=== PATIENT | male | born 1955 ===

== ENCOUNTER 2016-12-09 05:13 | Emergency (ER) | payer OTHER ==
[2016-12-09 05:13] VITALS: BMI 32.2
[2016-12-09 05:36] VITALS: RESP 18; TEMP 98.6
[2016-12-09] MEDS ORDERED: Sodium Chloride 0.9% 1,000 ML IV STA (05:52)
--- NOTE | 2016-12-09 06:07 | ED PDOC ---
HPI: Male Pain Time Seen by Provider: 12/09/16 05:20 Chief Complaint (Nursing): Male Genitourinary Chief Complaint (Provider): hematuria History Per: Patient History/Exam Limitations: no limitations Onset/Duration Of Symptoms: Hrs Current Symptoms Are (Timing): Still Present Additional Complaint(s): 61yo male with PMHx including CAD w/ stent on plavix presents to the ED with c/ o hematuria x 3 episodes tonight with associated left sided abd pain and flank pain worse since tonight. Denies n/v, other bleeding, or any other medical complaints. Past Medical History Reviewed: Historical Data, Nursing Documentation, Vital Signs Vital Signs: Last Vital Signs Temp 98.6 F 12/09/16 05:30 Pulse 74 12/09/16 05:30 Resp 18 12/09/16 05:30 BP 165/93 H 12/09/16 05:30 Pulse Ox 98 12/09/16 05:30 - Medical History PMH: Asthma, CAD, Colonic Polyps, COPD, Emphysema, Gastritis, HTN Denies: Chronic Kidney Disease - Surgical History Surgical History: Back Surgery (cervical fusion - 2 years ago), Coronary Stent ( x1) - Family History Family History: States: No Known Family Hx - Home Medications Home Medications: Ambulatory Orders Medication Instructions Recorded Clopidogrel [Plavix] 75 mg PO DAILY 04/27/16 Albuterol HFA [Ventolin HFA 90 200 puff IH PRN PRN 08/13/16 mcg/actuation (8 g)] Acetaminophen 2 tab PO Q4 PRN #24 capsule 11/28/16 oxyCODONE/Acetaminophen [Percocet 1 ea PO Q6 PRN #5 tab 11/28/16 5/325 mg Tab] Nitrofurantoin Macrocrystals 100 mg PO BID #14 cap 12/09/16 [Macrobid] - Allergies Allergies/Adverse Reactions: Allergies Allergy/AdvReac Type Severity Reaction Status Date / Time No Known Allergies Allergy Verified 02/27/16 07:40 Review of Systems ROS Statement: Except As Marked, All Systems Reviewed And Found Negative Gastrointestinal: Positive for: Abdominal Pain. Negative for: Nausea, Vomiting Genitourinary Male: Positive for: Hematuria Musculoskeletal: Positive for: Back Pain (flank pain ) Physical Exam - Reviewed Nursing Documentation Reviewed: Yes Vital Signs Reviewed: Yes - Physical Exam Appears: Positive for: Well, No Acute Distress Head Exam: Positive for: ATRAUMATIC, NORMAL INSPECTION, NORMOCEPHALIC Skin: Positive for: Normal Color, Warm, Dry Eye Exam: Positive for: Normal appearance, EOMI, PERRL ENT: Positive for: Normal ENT Inspection Neck: Positive for: Normal, Painless ROM, Supple Cardiovascular/Chest: Positive for: Regular Rate, Rhythm. Negative for: Murmur , Tachycardia Respiratory: Positive for: Normal Breath Sounds. Negative for: Wheezing, Respiratory Distress Gastrointestinal/Abdominal: Positive for: Normal Exam, Bowel Sounds, Soft. Negative for: Tenderness Back: Positive for: Normal Inspection. Negative for: L CVA Tenderness, R CVA Tenderness Extremity: Positive for: Normal ROM. Negative for: Deformity, Swelling Neurologic/Psych: Positive for: Alert, Oriented. Negative for: Motor/Sensory Deficits - Laboratory Results Result Diagrams: 12/09/16 06:05 12/09/16 06:05 - ECG O2 Sat by Pulse Oximetry: 98 Pulse Ox Interpretation: Normal (RA) Medical Decision Making Medical Decision Makin: Impression: kidney stone Plan: CT A/P Labs IVF, Toradol 15mg IVP reassess Urine noted to be dark red. Pt s/o to Dr. Mendiola at [address] A/P, labs, re-eval. Scribe Attestation: Documented by Edmar Garnica acting as a scribe for Paulo Moser MD. Provider Scribe Attestation: All medical record entries made by the Scribe were at my direction and personally dictated by me. I have reviewed the chart and agree that the record accurately reflects my personal performance of the history, physical exam, medical decision making, and the department course for this patient. I have also personally directed, reviewed, and agree with the discharge instructions and disposition. Disposition - Clinical Impression Clinical Impression: Hematuria, Voiding dysfunction, Diverticulosis, Cystitis - Patient ED Disposition Is Patient to be Admitted: Transfer of Care - Disposition Referrals: Allen Mcleod MD [Staff Provider] - Dm Marr Jr., MD [Staff Provider] - Luis Enrique Bush MD [Primary Care Provider] - Disposition: Transfer of Care Disposition Time: 07:00 Condition: GOOD Additional Instructions: Follow up with your PCP in 2-3 days. FOllow up with urologist within 1 week. Prescriptions: Nitrofurantoin Macrocrystals [Macrobid] 100 mg PO BID #14 cap Instructions: Urinary Tract Infection in Men (ED), Acute Hematuria (ED) Patient Signed Over To: Oracio Mendiola Handoff Comments: pending CT A/P, labs, re-eval
[2016-12-09 06:24] LABS: EOS # 0.6 K/uL (0.0-0.7); EOS % 10.4 % (0.0-4.0); HEMATOCRIT 45.8 % (35.0-51.0); LYMPH # 1.1 K/uL (1.0-4.3); LYMPH % 19.2 % (20.0-40.0); MEAN CELL VOLUME 93.6 fl (80.0-94.0); MEAN CORPUSCULAR HEMOGLOBIN 31.2 pg (27.0-31.0); MEAN CORPUSCULAR HGB CONC 33.3 g/dL (33.0-37.0); MEAN PLATELET VOLUME 8.2 fl (7.2-11.7); MONO # 0.6 K/uL (0.0-0.8); MONO % 11.1 % (0.0-10.0); NEUT # 3.3 K/uL (1.8-7.0); NEUT % 59.3 % (50.0-75.0); NRBC % 0.1 % (0.0-0.0); RED CELL DISTRIBUTION WIDTH 13.5 % (11.5-14.5); WHITE BLOOD COUNT 5.6 K/uL (4.8-10.8)
[2016-12-09 06:50] LABS: RBC URINE 52 /hpf (0-3); URINE BACTERIA RARE (<OCC); URINE BILIRUBIN NEGATIVE (NEGATIVE); URINE BLOOD MODERATE (NEGATIVE); URINE COLOR RED (YELLOW); URINE GLUCOSE (UA) NEG (Normal); URINE KETONE NEGATIVE (NEGATIVE); URINE PROTEIN 100 mg/dL (NEGATIVE); URINE UROBILINOGEN 0.2-1.0 mg/dL (0.2-1.0); WBC URINE 8 /hpf (0-5)
[2016-12-09 06:51] LABS: URINE LEUKOCYTE ESTERASE SMALL Leu/uL (Negative)
--- NOTE | 2016-12-09 06:56 | CT ---
EXAM: CT Abdomen and Pelvis Without Intravenous Contrast. CLINICAL HISTORY: 61 years old, male; Pain; Abdominal pain; Flank; Left; Additional info: Hematuria and l abd pain TECHNIQUE: Axial computed tomography images of the abdomen and pelvis without intravenous contrast. This CT exam was performed using one or more of the following dose reduction techniques: automated exposure control, adjustment of the mA and/or kV according to patient size, and/or use of iterative reconstruction technique. Coronal and sagittal reformatted images were created and reviewed. EXAM DATE/TIME: 12/09/2016 5:51 AM COMPARISON: CT - ABD PELVIS PO CONTRAST ONLY 08/13/2016 12:18:32 PM FINDINGS: The liver, spleen, gallbladder and pancreas appear grossly normal on this non-contrast study. No perinephric stranding. No hydronephrosis. No obstructing calculi. The wall of the urinary bladder appears slightly thickened and indistinct possibly representing cystitis. Scattered colonic diverticuli are noted in the descending colon. No evidence of diverticulitis. Proximal appendix identified on series 3 images 95 - 102. There are adjacent clips. This may represent an appendiceal stump. There is an umbilical fat hernia. Borderline prominent prostate. Recommend correlation with PSA level. Clips in the inguinal regions bilaterally. IMPRESSION: Left-sided colonic diverticulosis without evidence of diverticulitis. Possible mild cystitis as discussed above.Recommend correlation with urinalysis.
[2016-12-09 07:00] LABS: ALB/GLOB RATIO 1.2 (1.0-2.1); ALKALINE PHOSPHATASE 58 U/L (38-126); ALT/SGPT 66 U/L (21-72); AST/SGOT 53 U/L (17-59); BILIRUBIN,TOTAL 0.6 mg/dl (0.2-1.3); BLOOD UREA NITROGEN 18 mg/dl (9-20); CALCIUM 8.9 mg/dL (8.4-10.2); CARBON DIOXIDE 27 mmol/L (22-30); CHLORIDE 104 mmol/L (98-107); GFR AFRICAN-AMERICAN > 60; GLUCOSE,RANDOM 102 mg/dL (75-110); LIPASE 465 U/L (23-300); POTASSIUM 4.2 MMOL/L (3.6-5.0); SODIUM 137 mmol/l (132-148); TOTAL PROTEIN 7.3 G/DL (6.3-8.2)
--- NOTE | 2016-12-09 07:10 | ED PDOC ---
- Laboratory Results Result Diagrams: 12/09/16 06:05 12/09/16 06:05 - ECG O2 Sat by Pulse Oximetry: 98 - Progress Re-evaluation Time: 08:48 Condition: Re-examined, Improved Medical Decision Making Medical Decision Making: Time: 0700 Patient signed out by Dr. Moser pending U/S, labs and re-evaluation Time: 0840 U/S report reviewed PROCEDURE: Ultrasound urinary bladder HISTORY: ex-smoker, hematuria, r/o bladder CA COMPARISON: None available TECHNIQUE: Transabdominal FINDINGS: The distended urinary bladder measures 414.36 mL. The wall is smooth and thin. There is no intraluminal mass. Postvoid, the residual volume is 179.89 mL. This is a large postvoid residual. Bilateral ureteral jets are demonstrated. The prostate measures 63.6 mL in volume. IMPRESSION: Large postvoid residual within the urinary bladder. No intraluminal mass or mural thickening appreciated. Bilateral ureteral jets. Enlarged prostate. Scribe Attestation: Documented by Gisele La acting as a scribe for Oracio Mendiola MD MD Scribe Attestation: All medical record entries made by the Scribe were at my direction and personally dictated by me. I have reviewed the chart and agree that the record accurately reflects my personal performance of the history, physical exam, medical decision making, and the department course for this patient. I have also personally directed, reviewed, and agree with the discharge instructions and disposition. Disposition Doctor Will See Patient In The: Office Counseled Patient/Family Regarding: Studies Performed, Diagnosis, Need For Followup - Clinical Impression Clinical Impression: Hematuria, Dysfunctional voiding of urine, Diverticulosis of intestine, Cystitis - POA Present On Arrival: None - Disposition Referrals: Luis Enrique Bush MD [Primary Care Provider] - Dm Marr Jr., MD [Staff Provider] - Allen Mcleod MD [Staff Provider] - Disposition: Routine/Home Disposition Time: 08:49 Condition: GOOD Additional Instructions: Follow up with your PCP in 2-3 days. FOllow up with urologist within 1 week. Prescriptions: Nitrofurantoin Macrocrystals [Macrobid] 100 mg PO BID #14 cap Instructions: Urinary Tract Infection in Men (ED), Acute Hematuria (ED)
[2016-12-09 08:03] LABS: PARTIAL THROMBOPLASTIN TIME 25.4 SECONDS (23.3-32.5)
--- NOTE | 2016-12-09 08:39 | US ---
PROCEDURE: Ultrasound urinary bladder HISTORY: ex-smoker, hematuria, r/o bladder CA COMPARISON: None available TECHNIQUE: Transabdominal FINDINGS: The distended urinary bladder measures 414.36 mL. The wall is smooth and thin. There is no intraluminal mass. Postvoid, the residual volume is 179.89 mL. This is a large postvoid residual. Bilateral ureteral jets are demonstrated. The prostate measures 63.6 mL in volume. IMPRESSION: Large postvoid residual within the urinary bladder. No intraluminal mass or mural thickening appreciated. Bilateral ureteral jets. Enlarged prostate.
[2016-12-09 09:14] VITALS: BP 156/99; PULSE 62
[2016-12-11 19:02] VITALS: O2SAT 98
== END 2016-12-09 09:00 | disposition home or self-care (01) ==
LOC: H.ER 05:13
DX: N30.91 Cystitis, unspecified with hematuria (principal); K57.30 Diverticulosis of large intestine without perforation or abscess without bleeding; R31.9 Hematuria, unspecified; I10 Essential (primary) hypertension; I25.10 Atherosclerotic heart disease of native coronary artery without angina pectoris; Z95.5 Presence of coronary angioplasty implant and graft

== ENCOUNTER 2017-07-06 11:31 | Emergency (ER) | payer BC, OTHER ==
[2017-07-06 11:31] VITALS: BMI 32.2
[2017-07-06 12:02] VITALS: BP 118/63; PULSE 63; RESP 18; TEMP 97; O2SAT 96
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
--- NOTE | 2017-07-07 14:31 | RAD ---
PROCEDURE: Left Knee Radiographs. HISTORY: Pain. No history of recent/ related trauma provided COMPARISON: 11/28/2016 FINDINGS: BONES: No acute fracture. Proliferative hypertrophic changes emanating from the femoral condyle and tibial plateau JOINTS: Normal. No osteoarthritis. JOINT EFFUSION: Small suprapatellar joint effusion. OTHER FINDINGS: None. IMPRESSION: Small joint effusion. Otherwise no interval change. Please note: No preliminary report/ innterpretation of this examination provided by emergency department personnel.
== END 2017-07-06 13:36 | disposition home or self-care (01) ==
LOC: H.ER 11:31
DX: S83.92XA Sprain of unspecified site of left knee, initial encounter (principal); X50.9XXA Other and unspecified overexertion or strenuous movements or postures, initial encounter; Y92.89 Other specified places as the place of occurrence of the external cause
CPT/HCPCS: 73562; 96372; 99284; J1885

== ENCOUNTER 2018-06-19 15:53 | Emergency (ER) | payer OTHER ==
[2018-06-19 15:53] VITALS: BMI 32.2
[2018-06-19 16:02] VITALS: BP 126/73; PULSE 57; RESP 18; TEMP 97.9; O2SAT 98
--- NOTE | 2018-06-19 16:37 | ED PDOC ---
HPI: Trauma/Fall - HPI Chief Complaint (Provider): Trauma History Per: Patient Onset/Duration Of Symptoms: Hrs (STUDY DIRECTOR) Additional Complaint(s): 63 year old male presents to the ED via EMS after he slipped and fell. Patient reports he was in his apartment building when he noticed the floor was wet. He went down the stairs and slipped and landed on his back. Patient is unsure whether he hit his head but denies LOC, numbness, or tingling. He is complaining of headache, neck pain, and back pain. Patient is concerned because he had surgery done to the cervical spine in the past. PMD: Luis Enrique Traore <Kayleen Mccord - Last Filed: 06/19/18 18:09> <Sruthi Andrew - Last Filed: 06/24/18 13:49> - HPI Time Seen by Provider: 06/19/18 16:04 Chief Complaint (Nursing): Trauma Past Medical History Reviewed: Historical Data, Nursing Documentation, Vital Signs Vital Signs: Last Vital Signs Temp 97.9 F 06/19/18 15:59 Pulse 57 L 06/19/18 15:59 Resp 18 06/19/18 15:59 BP 126/73 06/19/18 15:59 Pulse Ox 98 06/19/18 15:59 - Medical History PMH: Asthma, CAD, Colonic Polyps, COPD, Emphysema, Gastritis, HTN Denies: Chronic Kidney Disease - Surgical History Surgical History: Back Surgery (cervical fusion - 2 years ago), Coronary Stent (x1) - Family History Family History: States: Unknown Family Hx <Kayleen Mccord - Last Filed: 06/19/18 18:09> Vital Signs: Last Vital Signs Temp 97.9 F 06/19/18 15:59 Pulse 57 L 06/19/18 15:59 Resp 18 06/19/18 15:59 BP 126/73 06/19/18 15:59 Pulse Ox 98 06/19/18 18:12 <Sruthi Andrew - Last Filed: 06/24/18 13:49> - Home Medications Home Medications: Ambulatory Orders Medication Instructions Recorded RX: Clopidogrel [Plavix] 75 mg PO DAILY 04/27/16 RX: Albuterol HFA [Ventolin HFA 90 200 puff IH PRN PRN 08/13/16 mcg/actuation (8 g)] RX: Acetaminophen 2 tab PO Q4 PRN #24 capsule 11/28/16 oxyCODONE/Acetaminophen [Percocet 1 ea PO Q6 PRN #5 tab 11/28/16 5/325 mg Tab] Nitrofurantoin Macrocrystals 100 mg PO BID #14 cap 12/09/16 [Macrobid] oxyCODONE/Acetaminophen [Percocet 1 ea PO Q6 PRN #4 tab 07/06/17 5/325 mg Tab] oxyCODONE/Acetaminophen [Percocet 1 ea PO Q6H PRN #10 tab 06/19/18 5/325 mg Tab] - Allergies Allergies/Adverse Reactions: Allergies Allergy/AdvReac Type Severity Reaction Status Date / Time No Known Allergies Allergy Verified 06/19/18 15:59 Review of Systems ROS Statement: Except As Marked, All Systems Reviewed And Found Negative Musculoskeletal: Positive for: Neck Pain, Back Pain Neurological: Positive for: Headache. Negative for: Numbness (or tingling), Other (LOC) <Kayleen Mccord - Last Filed: 06/19/18 18:09> Physical Exam - Reviewed Nursing Documentation Reviewed: Yes Vital Signs Reviewed: Yes - Physical Exam Appears: Positive for: Non-toxic, No Acute Distress Head Exam: Positive for: ATRAUMATIC, NORMAL INSPECTION, NORMOCEPHALIC Skin: Positive for: Normal Color, Warm, Dry Eye Exam: Positive for: Normal appearance, EOMI, PERRL Neck: Positive for: Normal, Painless ROM Cardiovascular/Chest: Positive for: Regular Rate, Rhythm. Negative for: Murmur Respiratory: Positive for: Normal Breath Sounds. Negative for: Wheezing, Respiratory Distress Back: Positive for: Other (Tenderness to the entire spine) Neurologic/Psych: Positive for: Alert, Oriented. Negative for: Motor/Sensory Deficits <Kayleen Mccord - Last Filed: 06/19/18 18:09> - ECG O2 Sat by Pulse Oximetry: 98 (RA) Pulse Ox Interpretation: Normal <Kayleen Mccord - Last Filed: 06/19/18 18:09> Medical Decision Making Medical Decision Making: Initial Impression: Neck pain, back pain, and headache Initial Plan: --CT cervical spine --CT head --CT lumbar spine --CT thoracic spine --Morphine 2mg IM 17:14 CT Head IMPRESSION: No acute intracranial hemorrhage. Minor chronic periventricular white matter ischemic changes. Mild generalized volume loss with more localized cortical atrophic changes both parietal and to a lesser degree frontal lobes bilaterally at the vertex. Mild mucoperiosteal inflammatory changes within all the paranasal sinuses as described 17:30 CT cervical spine IMPRESSION: 1. Stable cervical fusion from C5-C7 including anterior compression plate and screws throughout same distribution anteriorly as well as intervertebral fusion hardware at C5-6 and C6-7. No fracture, spondylolisthesis or disruption of the fusion hardware as imaged. 2. Advanced multilevel neural foraminal stenoses as discussed above, minimally increased at the C3-4 level and otherwise stable. No severe central canal stenosis. Limited central canal stenosis is noted on degenerative basis at C3- 4. 17:33 CT lumbar spine IMPRESSION: No acute fractures. Mild multilevel degenerative spondylosis as detailed above. 17:34 CT thoracic spine IMPRESSION: No acute fracture or spondylolisthesis. Schmorl's node is debris associated with limited upper endplate depression at T12. 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 Scribe Attestation: Documented by Zurdo Mcintosh acting as a scribe for Kayleen PATRICIA. Provider Scribe Attestation: All medical record entries made by the Scribe were at my direction and personally dictated by me. I have reviewed the chart and agree that the record accurately reflects my personal performance of the history, physical exam, medical decision making, and the department course for this patient. I have also personally directed, reviewed, and agree with the discharge instructions and disposition. <Kayleen Mccord - Last Filed: 06/19/18 18:09> Disposition - Patient ED Disposition Is Patient to be Admitted: No Counseled Patient/Family Regarding: Diagnosis, Need For Followup, Rx Given - Disposition Disposition: Routine/Home Disposition Time: 18:11 <Kayleen Mccord - Last Filed: 06/19/18 18:09> <Sruthi Andrew - Last Filed: 06/24/18 13:49> - Clinical Impression Clinical Impression: Head injury, Fall, Back injury - Disposition Condition: GOOD Prescriptions: oxyCODONE/Acetaminophen [Percocet 5/325 mg Tab] 1 ea PO Q6H PRN #10 tab PRN Reason: Pain, Severe (8-10) Instructions: Concussion in Adults Forms: [employer] (Y[place]i) Addendum Addendum: 06/24/18 13:49 reviewed chart and agree with PA assessment and plan. <Sruthi Andrew - Last Filed: 06/24/18 13:49>
--- NOTE | 2018-06-19 17:15 | CT ---
Date of service: 06/19/2018 PROCEDURE: CT HEAD WITHOUT CONTRAST. HISTORY: Headache following after fall on steps COMPARISON: None available. TECHNIQUE: Axial computed tomography images were obtained through the head/brain without intravenous contrast. Radiation dose: Total exam DLP = 1661.81 mGy-cm. This CT exam was performed using one or more of the following dose reduction techniques: Automated exposure control, adjustment of the mA and/or kV according to patient size, and/or use of iterative reconstruction technique. FINDINGS: HEMORRHAGE: No intracranial hemorrhage. BRAIN: Right periventricular white matter ischemic changes seen extending peripherally into the deep white matter both cerebral hemispheres. No obvious parenchymal nor extra-axial mass or collection. Moderate generalized volume loss with more localized biparietal and to a lesser degree bifrontal cortical atrophic changes at the vertex. VENTRICLES: No obstructive hydrocephalus. CALVARIUM: There are no acute calvarial fractures. PARANASAL SINUSES: Minimal mucosal thickening seen within the maxillary antra left greater than right. There is also minor mucosal thickening seen within multiple ethmoid air cells extending superiorly into the inferior margin of the frontal sinus. The minimal mucosal thickening also noted within the sphenoid sinus MASTOID AIR CELLS: Unremarkable as visualized. No inflammatory changes. OTHER FINDINGS: None. IMPRESSION: No acute intracranial hemorrhage. Minor chronic periventricular white matter ischemic changes. Mild generalized volume loss with more localized cortical atrophic changes both parietal and to a lesser degree frontal lobes bilaterally at the vertex. Mild mucoperiosteal inflammatory changes within all the paranasal sinuses as described
--- NOTE | 2018-06-19 17:32 | CT ---
Date of service: 06/19/2018 PROCEDURE: CT Cervical Spine without contrast HISTORY: neck pain, fell on steps COMPARISON: Noncontrast cervical spine CT 11/28/2016. TECHNIQUE: Axial computed tomography images were obtained of the cervical spine without the use of intravenous contrast. Coronal and sagittal reformatted images were created and reviewed. Radiation dose: Total exam DLP = 342.23 mGy-cm. This CT exam was performed using one or more of the following dose reduction techniques: Automated exposure control, adjustment of the mA and/or kV according to patient size, and/or use of iterative reconstruction technique. FINDINGS: VERTEBRAE: No fracture. Normal alignment. No destructive bony lesion. DISCS/SPINAL CANAL/NEURAL FORAMINA: Stable anterior spinal fusion including compression plate and multiple screws at C5, C6 and C7 and intervertebral fusion hardware at C5-6 and C6-7 once again. No interval spondylolisthesis. No disruption of fusion hardware appreciable. Stable prominent spondylosis at C3-4 and anteriorly at C7-T1. No significant central canal or neural foraminal stenosis. Significant disc height loss is reiterated C3-4 and moderately at C4-5 once again. At C3-4, a circumferential disc osteophyte complex is appreciated combining with prominent uncovertebral arthrosis resulting in borderline central canal stenosis and moderate to severe bilateral neural foraminal stenosis, slightly increased in the interval. At C4-5, moderate to severe left degenerative foraminal stenosis appreciated, borderline at the right due to left greater than right facet arthrosis and uncovertebral arthrosis. No significant central canal though minimal disc osteophyte complex is identified. At C5-6, significant central canal stenosis appreciated though osteophytes do encroach ventral nerve roots. Moderate severe bilateral degenerative neural foraminal stenoses are not significantly changed in the interval. Fusion hardware obscures the evaluation somewhat. At C6-7, mild bilateral neural foraminal stenoses are again appreciated which are degenerative with artifacts obscuring this level somewhat. No canal appears widely patent. C7-T1 is widely patent throughout all foramina. PARASPINAL SOFT TISSUES: Unremarkable. OTHER FINDINGS: None. IMPRESSION: 1. Stable cervical fusion from C5-C7 including anterior compression plate and screws throughout same distribution anteriorly as well as intervertebral fusion hardware at C5-6 and C6-7. No fracture, spondylolisthesis or disruption of the fusion hardware as imaged. 2. Advanced multilevel neural foraminal stenoses as discussed above, minimally increased at the C3-4 level and otherwise stable. No severe central canal stenosis. Limited central canal stenosis is noted on degenerative basis at C3-4.
--- NOTE | 2018-06-19 17:35 | CT ---
Date of service: 06/19/2018 PROCEDURE: CT Lumbar Spine without contrast HISTORY: Low back pain the, fell on stairs COMPARISON: None available. TECHNIQUE: Axial computed tomography images were obtained of the lumbar spine without the use of intravenous contrast. Coronal and sagittal reformatted images were created and reviewed. Radiation dose: Total exam DLP = 1102.85 mGy-cm. This CT exam was performed using one or more of the following dose reduction techniques: Automated exposure control, adjustment of the mA and/or kV according to patient size, and/or use of iterative reconstruction technique. FINDINGS: VERTEBRAE: No acute compression fractures no retropulsed fragments. Minimal chronic anterior stature loss of the L1 segment present felt to be degenerative in origin. Remaining vertebral bodies otherwise exhibit normal stature. Vertebral bodies and facets normally aligned.. DISCS/SPINAL CANAL/NEURAL FORAMINA: Minor multilevel degenerative spondylosis. L1-2: Mild disc space narrowing more so along the posterior disc margin. No disc herniation however there is minor broad-based though somewhat asymmetric disc ridge complex slightly larger on the left than the right with minor compressive effects on the ventral surface of the thecal sac. The overall central bony canal at this level is quite capacious. Exit foramina adequate as well... Facets are slightly over grown. L2-3: There is also mild posterior disc space narrowing. Somewhat asymmetric disc bulging changes are present which results in compressive effects on the anterolateral borders of the thecal sac bilaterally and some extension into the proximal inferior margins of both exit foramina. The overall central canal appears quite capacious however despite disc. Exit foramina are also adequate L3-4: Minor posterior disc space narrowing. There is also minimal asymmetric disc bulging which results in mild compressive effects along the anterolateral borders of the thecal sac bilaterally. The overall central canal is quite capacious. Exit foramina adequate. L4-5: Minor posterior disc space narrowing. Small broad-based disc bulge extends into the proximal inferior margins of both exit foramina. The facets are hypertrophic at this level. Changes result in mild bilateral lateral recess narrowing. Central canal measured at midline is adequate. Exit foramina also adequate. L5-S1: Mild posterior disc space narrowing. Small central and bilateral disc bulge flattens the ventral surfaces of the descending S1 nerve roots. The overall central canal measured at midline is adequate. Right facet joint is quite hypertrophic. Left facet joint is mildly hypertrophic. There is mild left-sided foraminal narrowing. Right exit foramen is adequate. PARASPINAL SOFT TISSUES: Unremarkable. OTHER FINDINGS: None. IMPRESSION: No acute fractures. Mild multilevel degenerative spondylosis as detailed above.
--- NOTE | 2018-06-19 17:36 | CT ---
Date of service: 06/19/2018 PROCEDURE: CT Thoracic Spine without contrast HISTORY: back pain, fell on steps COMPARISON: None available. TECHNIQUE: Axial computed tomography images were obtained of the thoracic spine without intravenous contrast. Coronal and sagittal reformatted images were created and reviewed. Radiation dose: Total exam DLP = 773.75 mGy-cm. This CT exam was performed using one or more of the following dose reduction techniques: Automated exposure control, adjustment of the mA and/or kV according to patient size, and/or use of iterative reconstruction technique. FINDINGS: VERTEBRAE: No vertebral body fracture. Schmorl's node is associated with limited endplate depression at T12. Korey block vertebra is suggested at T3 and T4, congenitally fused. Normal alignment. No destructive bony lesion appreciable. Posterior elements appear diffusely intact without severe bony central canal or neural foraminal stenosis identified throughout. DISCS/SPINAL CANAL/NEURAL FORAMINA: Within the limits of the CT technique, no disc herniation seen. No central canal or neural foraminal stenosis.. PARASPINAL SOFT TISSUES: Unremarkable. OTHER FINDINGS: Inferior cervical spinal fusion incidentally noted. IMPRESSION: No acute fracture or spondylolisthesis. Schmorl's node is debris associated with limited upper endplate depression at T12. 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
== END 2018-06-19 18:18 | disposition home or self-care (01) ==
LOC: H.ER 15:53
DX: S09.90XA Unspecified injury of head, initial encounter (principal); S39.92XA Unspecified injury of lower back, initial encounter; W10.9XXA Fall (on) (from) unspecified stairs and steps, initial encounter; Y92.89 Other specified places as the place of occurrence of the external cause; I10 Essential (primary) hypertension; I25.10 Atherosclerotic heart disease of native coronary artery without angina pectoris; Z95.5 Presence of coronary angioplasty implant and graft
CPT/HCPCS: 70450; 72125; 72128; 72131; 96372; 99284; J2270

== ENCOUNTER 2018-08-23 13:55 | Emergency (ER) | payer OTHER ==
[2018-08-23 13:55] VITALS: BMI 32.2
[2018-08-23 14:09] VITALS: BP 144/83; RESP 16; TEMP 98.2; O2SAT 97
[2018-08-23 15:27] LABS: BASO % 0.2 % (0.0-2.0); EOS # 0.4 K/uL (0.0-0.7); EOS % 5.4 % (0.0-4.0); LYMPH # 2.1 K/uL (1.0-4.3); LYMPH % 29.3 % (20.0-40.0); MEAN CELL VOLUME 93.9 fl (80.0-94.0); MEAN CORPUSCULAR HEMOGLOBIN 32.1 pg (27.0-31.0); MEAN CORPUSCULAR HGB CONC 34.2 g/dL (33.0-37.0); MEAN PLATELET VOLUME 8.5 fl (7.2-11.7); MONO # 0.8 K/uL (0.0-0.8); MONO % 10.4 % (0.0-10.0); NEUT % 54.7 % (50.0-75.0); RBC 4.35 Mil/uL (4.40-5.90); RED CELL DISTRIBUTION WIDTH 13.2 % (11.5-14.5); WHITE BLOOD COUNT 7.3 K/uL (4.8-10.8)
--- NOTE | 2018-08-23 15:38 | ED PDOC ---
HPI: Back Time Seen by Provider: 08/23/18 14:54 Chief Complaint (Nursing): Cough, Cold, Congestion Chief Complaint (Provider): Back Pain, Cough History Per: Patient History/Exam Limitations: no limitations Onset/Duration Of Symptoms: Days (x4) Current Symptoms Are (Timing): Still Present Additional Complaint(s): 63 year old male presents to the ED for evaluation of a cough productive of green sputum associated with non-radiating left sided upper back pain for the past four days. Patient notes he has emphysema and has not noticed any abnormal shortness of breath. Otherwise denies chest pain, hematuria, incontience, fever, and trauma. PMD: Luis Enrique Bush Past Medical History Reviewed: Historical Data, Nursing Documentation, Vital Signs Vital Signs: Last Vital Signs Temp 98.2 F 08/23/18 14:06 Pulse 63 08/23/18 14:06 Resp 16 08/23/18 14:06 BP 144/83 08/23/18 14:06 Pulse Ox 97 08/23/18 14:06 - Medical History PMH: Asthma, CAD, Colonic Polyps, COPD, Emphysema, Gastritis, HTN Denies: Chronic Kidney Disease - Surgical History Surgical History: Back Surgery (cervical fusion - 2 years ago), Coronary Stent (x1) - Family History Family History: States: Unknown Family Hx - Social History Current smoker - smoking cessation education provided: No Ex-Smoker (has not smoked in the last 12 months): Yes Alcohol: None Drugs: Denies - Home Medications Home Medications: Ambulatory Orders Medication Instructions Recorded RX: Clopidogrel [Plavix] 75 mg PO DAILY 04/27/16 RX: Albuterol HFA [Ventolin HFA 90 200 puff IH PRN PRN 08/13/16 mcg/actuation (8 g)] RX: Acetaminophen 2 tab PO Q4 PRN #24 capsule 11/28/16 oxyCODONE/Acetaminophen [Percocet 1 ea PO Q6 PRN #5 tab 11/28/16 5/325 mg Tab] Nitrofurantoin Macrocrystals 100 mg PO BID #14 cap 12/09/16 [Macrobid] oxyCODONE/Acetaminophen [Percocet 1 ea PO Q6 PRN #4 tab 07/06/17 5/325 mg Tab] oxyCODONE/Acetaminophen [Percocet 1 ea PO Q6H PRN #10 tab 06/19/18 5/325 mg Tab] Azithromycin [Zithromax] 250 mg PO DAILY #6 tab 08/23/18 Benzonatate [Tessalon Perle] 100 mg PO Q8 PRN #10 capsule 08/23/18 - Allergies Allergies/Adverse Reactions: Allergies Allergy/AdvReac Type Severity Reaction Status Date / Time Iodinated Contrast- Oral and Allergy RASH Verified 08/23/18 14:05 IV Dye Review of Systems ROS Statement: Except As Marked, All Systems Reviewed And Found Negative Constitutional: Negative for: Fever Cardiovascular: Negative for: Chest Pain Respiratory: Positive for: Cough, Sputum (green) Genitourinary Male: Negative for: Incontinence, Hematuria Musculoskeletal: Positive for: Back Pain (left upper back, non-radiating) Physical Exam - Reviewed Nursing Documentation Reviewed: Yes Vital Signs Reviewed: Yes - Physical Exam Appears: Positive for: No Acute Distress Cardiovascular/Chest: Positive for: Regular Rate, Rhythm Respiratory: Positive for: Normal Breath Sounds. Negative for: Respiratory Dis tress Back: Positive for: Normal Inspection. Negative for: L CVA Tenderness, R CVA Tenderness - Laboratory Results Result Diagrams: 08/23/18 15:23 08/23/18 15:23 - ECG ECG: Positive for: Interpreted By Me ECG Rhythm: Positive for: Sinus Bradycardia. Negative for: ST/T Changes Rate: 55 O2 Sat by Pulse Oximetry: 97 (RA) Pulse Ox Interpretation: Normal - Progress ED Course And Treament: Urine dip: negative for leuks, blood, nitrates. Medical Decision Making Medical Decision Making: Time: 1502 Initial Impression: cough, back pain Initial Plan: --CT Angio chest --EKG --CMP --Trop I --CBC with differential 7 CXR FINDINGS: LINES AND TUBES: None. LUNG AND PLEURA: The lungs are hyperinflated and there is peribronchial thickening with chronic changes in both lungs. There is linear scar in the left lower lobe. No pleural effusion or pneumothorax. HEART AND MEDIASTINUM: The heart is not enlarged. Atherosclerotic aortic arch calcifications are present. The hilar and mediastinal contours are within normal limits. SKELETAL STRUCTURES: The bony structures are within normal limits for the patient's age. There are postsurgical changes in the lower cervical spine. VISUALIZED UPPER ABDOMEN: Normal. OTHER FINDINGS: None. IMPRESSION: No active pulmonary disease. COPD. [address] Meek, and patient verbalized that he was diagnosed via CXR with a mass in his lungs several months ago, but never followed up with a pulmonary nurse practitioner. He further reports SOB, but notes it is chronic due to emphysema and is unchanged at this time. Additionally, he reports back pain worse with movement. Pt. is still to get CTA chest. Benadryl 50mg IV, solu- medrol 125mg IV ordered. 1846 CT Angio FINDINGS: PULMONARY ARTERIES: Unremarkable. No pulmonary embolism. AORTA: No acute findings. No thoracic aortic aneurysm. No atherosclerotic calcification or mural plaque present. LUNGS: Unremarkable. No nodule, mass or pulmonary consolidation. PLEURAL SPACES: Unremarkable. No effusion or pneumothorax. HEART: Unremarkable. No cardiomegaly. No significant pericardial effusion. LYMPH NODES: No lymphadenopathy. BONES, CHEST WALL: Unremarkable. No fracture or destructive lesion OTHER FINDINGS: Unremarkable. IMPRESSION: Unremarkable CT pulmonary angiogram. No pulmonary embolus. Pt. returned from CT without any reaction. No SOB, rash, throat swelling, or fever. 1899 Patient informed of results and instructed to follow up without fail with a pulmonary nurse practitioner. Scribe Attestation: Documented by Chloe Bae, acting as a scribe for Salvatore Henry PA-C Provider Scribe Attestation: All medical record entries made by the Scribe were at my direction and personally dictated by me. I have reviewed the chart and agree that the record accurately reflects my personal performance of the history, physical exam, medical decision making, and the department course for this patient. I have also personally directed, reviewed, and agree with the discharge instructions and disposition. Disposition - Clinical Impression Clinical Impression: Acute bronchitis - Patient ED Disposition Is Patient to be Admitted: No - Disposition Referrals: Luis Enrique Bush MD [Medical Doctor] - Disposition: Routine/Home Disposition Time: 18:59 Condition: STABLE Additional Instructions: RETURN TO ED IMMEDIATELY IF SYMPTOMS WORSEN FOLLOW UP WITH A INDUSTRIAL PSYCHOLOGY TEACHER OR PMD FOR FURTHER EVALUATION HETAL FARRIS, thank you for letting us take care of you today. Your provider was Catie Rose MD and you were treated for UPPER BODY PAIN. The emergency medical care you received today was directed at your acute symptoms. If you were prescribed any medication, please fill it and take as directed. It may take several days for your symptoms to resolve. Return to the Emergency Department if your symptoms worsen, do not improve, or if you have any other problems. Please contact your doctor or call one of the physicians/clinics you have been referred to that are listed on the Patient Visit Information form that is included in your discharge packet. Bring any paperwork you were given at discharge with you along with any medications you are taking to your follow up visit. Our treatment cannot replace ongoing medical care by a primary care provider outside of the emergency department. Thank you for allowing the [facility] team to be part of your care today. If you had an X-Ray or CT scan: A Radiologist will review the ED reading if any change in treatment is needed we will contact you. If you had a blood, urine, or wound culture: It will take several days for the results, if any change in treatment is needed we will contact you. If you had an STI test: It will take 48 hours for the results. Please call after 1 week if you have not heard back. Prescriptions: Azithromycin [Zithromax] 250 mg PO DAILY #6 tab Benzonatate [Tessalon Perle] 100 mg PO Q8 PRN #10 capsule PRN Reason: Cough Instructions: Acute Bronchitis, Adult (DC) Forms: [employer] (Kazakh) Print Language: [place]
[2018-08-23 15:41] LABS: ALB/GLOB RATIO 1.3 (1.0-2.1); ALBUMIN 4.2 g/dL (3.5-5.0); ALT/SGPT 46 U/L (21-72); AST/SGOT 41 U/L (17-59); BLOOD UREA NITROGEN 13 mg/dl (9-20); GFR NON-AFRICAN AMERICAN > 60
--- NOTE | 2018-08-23 17:03 | RAD ---
Date of service: 08/23/2018 HISTORY: Cough COMPARISON: 09/05/2016 TECHNIQUE: Chest PA and lateral FINDINGS: LINES AND TUBES: None. LUNG AND PLEURA: The lungs are hyperinflated and there is peribronchial thickening with chronic changes in both lungs. There is linear scar in the left lower lobe. No pleural effusion or pneumothorax. HEART AND MEDIASTINUM: The heart is not enlarged. Atherosclerotic aortic arch calcifications are present. The hilar and mediastinal contours are within normal limits. SKELETAL STRUCTURES: The bony structures are within normal limits for the patient's age. There are postsurgical changes in the lower cervical spine. VISUALIZED UPPER ABDOMEN: Normal. OTHER FINDINGS: None. IMPRESSION: No active pulmonary disease. COPD.
[2018-08-23] MEDS ORDERED: Iodixanol 320 MG/ML 100 ML BOTTLE IV ONE (17:44)
[2018-08-23] MEDS: DiphenhydrAMINE 50 mg/ml Inj IVP STA (17:45)
[2018-08-23] MEDS ORDERED: Sodium Chloride 0.9% 50 ML IV ONE (17:45)
--- NOTE | 2018-08-23 18:51 | CT ---
Date of service: 08/23/2018 PROCEDURE: CT Chest with contrast (Pulmonary Angiogram) HISTORY: L upper back pain, SOB COMPARISON: None available. TECHNIQUE: Axial computed tomography images were obtained of the chest in the pulmonary arterial phase of enhancement. Coronal and sagittal reformatted images were created and reviewed. Intravenous contrast dose: 80 cc Visipaque 320. Mean Hounsfield value in the main pulmonary artery: 222.74 Radiation dose: Total exam DLP = 383.66 mGy-cm. This CT exam was performed using one or more of the following dose reduction techniques: Automated exposure control, adjustment of the mA and/or kV according to patient size, and/or use of iterative reconstruction technique. FINDINGS: PULMONARY ARTERIES: Unremarkable. No pulmonary embolism. AORTA: No acute findings. No thoracic aortic aneurysm. No atherosclerotic calcification or mural plaque present. LUNGS: Unremarkable. No nodule, mass or pulmonary consolidation. PLEURAL SPACES: Unremarkable. No effusion or pneumothorax. HEART: Unremarkable. No cardiomegaly. No significant pericardial effusion. LYMPH NODES: No lymphadenopathy. BONES, CHEST WALL: Unremarkable. No fracture or destructive lesion OTHER FINDINGS: Unremarkable. IMPRESSION: Unremarkable CT pulmonary angiogram. No pulmonary embolus.
[2018-08-23 23:03] VITALS: PULSE 55
--- NOTE | 2018-08-24 08:01 | CARD ---
APPROVED REPORT Date of service: 08/23/2018 EKG Measurement Heart [id number] <Conclusion> Sinus bradycardia Otherwise normal ECG
== END 2018-08-23 19:07 | disposition home or self-care (01) ==
LOC: H.ER 13:55
DX: J20.9 Acute bronchitis, unspecified (principal); I10 Essential (primary) hypertension; I25.10 Atherosclerotic heart disease of native coronary artery without angina pectoris; J44.9 Chronic obstructive pulmonary disease, unspecified; Z95.5 Presence of coronary angioplasty implant and graft
CPT/HCPCS: 71046; 71275; 80053; 84484; 85025; 93005; 96374; 96375; 99283; J1200; J2930; Q9967

== ENCOUNTER 2018-09-06 06:37 | Emergency (ER) | payer OTHER ==
[2018-09-06 06:37] VITALS: BMI 32.2
[2018-09-06] MEDS ORDERED: Sodium Chloride 0.9% 1,000 ML IV STA (07:24)
--- NOTE | 2018-09-06 07:29 | ED PDOC ---
HPI:Nausea, Vomiting, Diarrhea Time Seen by Provider: 09/06/18 07:20 Chief Complaint (Nursing): Flu-like Symptoms Chief Complaint (Provider): Nausea, vomiting, diarrhea, cough, dizziness History Per: Patient History/Exam Limitations: no limitations Onset/Duration Of Symptoms: Days (x5) Current Symptoms Are (Timing): Still Present Associated Symptoms: Nausea, Vomiting, Diarrhea. denies: Fever Additional Complaint(s): 63 year old male, with a past medical history of COPD, presents to the ED complaining of nausea, vomiting, diarrhea, cough, and dizziness for 5 days. Patient denies fever, abdominal pain, chest pain, or palpitations. PMD: Richmond Hutchinson Past Medical History Reviewed: Historical Data, Nursing Documentation, Vital Signs Vital Signs: Last Vital Signs Temp 98.4 F 09/06/18 06:50 Pulse 79 09/06/18 06:50 Resp 21 09/06/18 06:50 BP 149/92 H 09/06/18 06:50 Pulse Ox 96 09/06/18 06:50 - Medical History PMH: Asthma, CAD, Colonic Polyps, COPD, Emphysema, Gastritis, HTN Denies: Chronic Kidney Disease - Surgical History Surgical History: Back Surgery (cervical fusion - 2 years ago), Coronary Stent (x1) - Family History Family History: States: Unknown Family Hx - Home Medications Home Medications: Ambulatory Orders Medication Instructions Recorded Clopidogrel [Plavix] 75 mg PO DAILY 04/27/16 Albuterol HFA [Ventolin HFA 90 200 puff IH PRN PRN 08/13/16 mcg/actuation (8 g)] Acetaminophen 2 tab PO Q4 PRN #24 capsule 11/28/16 oxyCODONE/Acetaminophen [Percocet 1 ea PO Q6 PRN #5 tab 11/28/16 5/325 mg Tab] Nitrofurantoin Macrocrystals 100 mg PO BID #14 cap 12/09/16 [Macrobid] oxyCODONE/Acetaminophen [Percocet 1 ea PO Q6 PRN #4 tab 07/06/17 5/325 mg Tab] oxyCODONE/Acetaminophen [Percocet 1 ea PO Q6H PRN #10 tab 06/19/18 5/325 mg Tab] Azithromycin [Zithromax] 250 mg PO DAILY #6 tab 08/23/18 Benzonatate [Tessalon Perle] 100 mg PO Q8 PRN #10 capsule 08/23/18 Meclizine [Meclizine*] 25 mg PO Q8 #15 tab 09/06/18 - Allergies Allergies/Adverse Reactions: Allergies Allergy/AdvReac Type Severity Reaction Status Date / Time Iodinated Contrast- Oral and Allergy RASH Verified 09/06/18 06:56 IV Dye lactulose AdvReac RASH Verified 09/06/18 06:56 Review of Systems ROS Statement: Except As Marked, All Systems Reviewed And Found Negative Constitutional: Negative for: Fever Cardiovascular: Negative for: Chest Pain, Palpitations Respiratory: Positive for: Cough Gastrointestinal: Positive for: Nausea, Vomiting, Diarrhea. Negative for: Abdominal Pain Neurological: Positive for: Dizziness Physical Exam - Reviewed Nursing Documentation Reviewed: Yes Vital Signs Reviewed: Yes - Physical Exam Appears: Positive for: Non-toxic, No Acute Distress Head Exam: Positive for: ATRAUMATIC, NORMOCEPHALIC Skin: Positive for: Normal Color, Warm, Dry Eye Exam: Positive for: Normal appearance ENT: Positive for: Normal ENT Inspection Neck: Positive for: Normal, Painless ROM Cardiovascular/Chest: Positive for: Regular Rate, Rhythm Respiratory: Positive for: Normal Breath Sounds. Negative for: Wheezing, Resp iratory Distress Gastrointestinal/Abdominal: Positive for: Normal Exam, Soft. Negative for: Tenderness Extremity: Positive for: Normal ROM Neurologic/Psych: Positive for: Alert. Negative for: Motor/Sensory Deficits - Laboratory Results Result Diagrams: 09/06/18 07:45 09/06/18 07:45 - ECG O2 Sat by Pulse Oximetry: 96 (RA) Pulse Ox Interpretation: Normal Medical Decision Making Medical Decision Making: Initial Plan: --ECG --CMP --CBC --Chest X-ray --Sodium chloride 1000mL IV --Zofran 4mg IV --Influenza A B stat Scribe Attestation: Documented by Zurdo Mcintosh acting as a scribe for Adilson Hu MD. Provider Scribe Attestation: All medical record entries made by the Scribe were at my direction and personally dictated by me. I have reviewed the chart and agree that the record accurately reflects my personal performance of the history, physical exam, medical decision making, and the department course for this patient. I have also personally directed, reviewed, and agree with the discharge instructions and disposition. Disposition - Clinical Impression Clinical Impression: Vertigo, Upper respiratory infection - Patient ED Disposition Is Patient to be Admitted: No Counseled Patient/Family Regarding: Studies Performed, Diagnosis, Need For Followup, Rx Given - Disposition Referrals: [facility] [Outside] Disposition: Routine/Home Disposition Time: 11:50 Condition: FAIR Prescriptions: Meclizine [Meclizine*] 25 mg PO Q8 #15 tab Instructions: Vertigo (a Type of Dizziness), Viral Upper Respiratory Infection, Adult (DC) Forms: [employer] ([place]), [employer] (Nigerien) Print Language: [place]ICAN CITIZEN
--- NOTE | 2018-09-06 08:31 | RAD ---
Date of service: 09/06/2018 HISTORY: cough COMPARISON: 08/23/2018 TECHNIQUE: Chest PA and lateral FINDINGS: LUNGS: No active pulmonary disease. Lungs are hyperinflated--similar in appearance. Left mid to lower lung zone discoid atelectasis and/or thread-like fibrosis-similar No consolidation noted PLEURA: No significant pleural effusion identified. No pneumothorax apparent. CARDIOVASCULAR: There is presence of aortic atherosclerotic calcification on x-ray. Normal cardiac size. No pulmonary vascular congestion. OSSEOUS STRUCTURES: Cervical fusion hardware present-similar VISUALIZED UPPER ABDOMEN: Normal. OTHER FINDINGS: None. IMPRESSION: No interval pathology noted. Specifically no interval consolidative infiltrate suggested. Other findings as above.
[2018-09-06 08:41] LABS: BASO % 0.6 % (0.0-2.0); EOS # 0.1 K/uL (0.0-0.7); EOS % 2.8 % (0.0-4.0); LYMPH # 1.1 K/uL (1.0-4.3); MEAN CELL VOLUME 94.9 fl (80.0-94.0); MEAN CORPUSCULAR HGB CONC 33.7 g/dL (33.0-37.0); MEAN PLATELET VOLUME 8.6 fl (7.2-11.7); MONO # 0.6 K/uL (0.0-0.8); MONO % 13.9 % (0.0-10.0); NEUT # 2.6 K/uL (1.8-7.0); NEUT % 57.7 % (50.0-75.0); NRBC % 0.1 % (0.0-0.0); RBC 5.01 Mil/uL (4.40-5.90); RED CELL DISTRIBUTION WIDTH 13.3 % (11.5-14.5); WHITE BLOOD COUNT 4.4 K/uL (4.8-10.8)
[2018-09-06 08:55] LABS: ALB/GLOB RATIO 1.1 (1.0-2.1); ALBUMIN 4.4 g/dL (3.5-5.0); ALT/SGPT 40 U/L (21-72); AST/SGOT 46 U/L (17-59); BLOOD UREA NITROGEN 13 mg/dl (9-20); CALCIUM 9.4 mg/dL (8.4-10.2); GFR NON-AFRICAN AMERICAN > 60
[2018-09-06 12:02] VITALS: BP 112/72; PULSE 72; RESP 18; TEMP 98.3; O2SAT 97
--- NOTE | 2018-09-06 20:45 | CARD ---
APPROVED REPORT Date of service: 09/06/2018 EKG Measurement Heart [id number] <Conclusion> Normal sinus rhythm Normal ECG
== END 2018-09-06 12:03 | disposition home or self-care (01) ==
LOC: H.ER 06:37
DX: J06.9 Acute upper respiratory infection, unspecified (principal); R42 Dizziness and giddiness
CPT/HCPCS: 71046; 80053; 85025; 87804; 93005; 96361; 96374; 99284; J2405; J7030

== ENCOUNTER 2018-10-24 13:40 | Emergency (ER) | payer OTHER ==
[2018-10-24 13:40] VITALS: BMI 32.2
[2018-10-24 13:50] VITALS: O2SAT 96
--- NOTE | 2018-10-24 14:38 | ED PDOC ---
HPI: Male Pain Time Seen by Provider: 10/24/18 13:55 Chief Complaint (Nursing): Male Genitourinary Additional History Per: Patient Additional Complaint(s): Pt is a 63 y/o male with hx of CAD, BPH and former smoker presents to ED for evaluation of 1 episode of hematuria. Pt states 1 hour ago prior to arriving to ED, he noticed bright red blood (no clots) in his toilet bowel. He also complains of burning with urination and LLQ pain x1 day. Denies fever/chills/flank pain. States he feels lightheaded and is worried he lost a lot of blood. Notably: Pt had ED visit in 11/2017 with Hematuria, was treated for UTI with Macrobid. Abdomen/Pelvis CT-- cystitis, prominent prostate. Was referred to Urology but never followed up. PMHx: Dr. Amaya Meds: Plavix, Flomax, Naproxen, Valcyclovir FmHx: Denies fmhx of bladder/renal Ca Social: Former smoker, quit 10+ years ago Past Medical History Reviewed: Historical Data, Nursing Documentation, Vital Signs Vital Signs: Last Vital Signs Temp 97.1 F L 10/24/18 13:47 Pulse 69 10/24/18 13:47 Resp 16 10/24/18 13:47 BP 151/80 H 10/24/18 13:47 Pulse Ox 96 10/24/18 13:47 - Medical History PMH: Asthma, CAD, Colonic Polyps, COPD, Emphysema, Gastritis, HTN Denies: Chronic Kidney Disease - Surgical History Surgical History: Back Surgery (cervical fusion - 2 years ago), Coronary Stent (x1) - Family History Family History: States: Unknown Family Hx - Home Medications Home Medications: Ambulatory Orders Medication Instructions Recorded Clopidogrel [Plavix] 75 mg PO DAILY 04/27/16 Albuterol HFA [Ventolin HFA 90 200 puff IH PRN PRN 08/13/16 mcg/actuation (8 g)] Acetaminophen 2 tab PO Q4 PRN #24 capsule 11/28/16 oxyCODONE/Acetaminophen [Percocet 1 ea PO Q6 PRN #5 tab 11/28/16 5/325 mg Tab] Nitrofurantoin Macrocrystals 100 mg PO BID #14 cap 12/09/16 [Macrobid] oxyCODONE/Acetaminophen [Percocet 1 ea PO Q6 PRN #4 tab 07/06/17 5/325 mg Tab] oxyCODONE/Acetaminophen [Percocet 1 ea PO Q6H PRN #10 tab 06/19/18 5/325 mg Tab] Azithromycin [Zithromax] 250 mg PO DAILY #6 tab 08/23/18 Benzonatate [Tessalon Perle] 100 mg PO Q8 PRN #10 capsule 08/23/18 Meclizine [Meclizine*] 25 mg PO Q8 #15 tab 09/06/18 Sulfamethoxazole/Trimethoprim 1 tab PO BID #20 tab 10/24/18 [Bactrim DS 800 mg-160 mg] - Allergies Allergies/Adverse Reactions: Allergies Allergy/AdvReac Type Severity Reaction Status Date / Time Iodinated Contrast- Oral and Allergy RASH Verified 10/24/18 13:46 IV Dye Review of Systems Constitutional: Negative for: Fever, Chills Cardiovascular: Negative for: Chest Pain, Palpitations Respiratory: Negative for: Cough, Shortness of Breath Gastrointestinal: Negative for: Nausea, Vomiting Genitourinary Male: Positive for: Dysuria, Frequency Physical Exam - Physical Exam Appears: Positive for: No Acute Distress Head Exam: Positive for: NORMAL INSPECTION Eye Exam: Positive for: Normal appearance ENT: Positive for: Normal ENT Inspection Neck: Positive for: Painless ROM Cardiovascular/Chest: Positive for: Regular Rate, Rhythm. Negative for: Murmur Respiratory: Positive for: Normal Breath Sounds. Negative for: Accessory Muscle Use, Crackles, Rales Pulses-Dorsalis Pedis (L): 2+ Pulses-Dorsalis Pedis (R): 2+ Pulses-Radial (L): 2+ Pulses-Radial (R): 2+ Gastrointestinal/Abdominal: Positive for: Bowel Sounds, Soft, Tenderness (LLQ mild tenderness to palpation). Negative for: Organomegaly, Mass, Guarding Male Genital Exam: Positive for: normal genitalia Extremity: Positive for: Normal ROM. Negative for: Pedal Edema Neurologic/Psych: Positive for: Alert, Oriented, Other (Appears anxious) - Laboratory Results Result Diagrams: 10/24/18 18:41 10/24/18 15:30 - ECG O2 Sat by Pulse Oximetry: 96 Medical Decision Making Medical Decision Making: Impression: Cystitis vs BPH vs Bladder CA. Will monitor urine output to assess for urinary retention. CBC BMP Type and Screen U/A Ucx Urine Cytology Pt reassessed at 16:30, reports lightheadedness resolved and has urinated twice with ease so far. Reviewed labs: Hemoglobin 14 Reassured pt regarding blood loss but emphasized importance for f/u with Urologist, will need cystoscopy outpatient. UA pending, will treat empirically if + Disposition - Clinical Impression Clinical Impression: Cystitis, Hematuria - Patient ED Disposition Is Patient to be Admitted: No Doctor Will See Patient In The: Office Counseled Patient/Family Regarding: Studies Performed, Diagnosis, Need For Followup, Rx Given - Disposition Referrals: Adrian Horne MD [Medical Doctor] - Disposition: Routine/Home Disposition Time: 19:00 Condition: FAIR Prescriptions: Sulfamethoxazole/Trimethoprim [Bactrim DS 800 mg-160 mg] 1 tab PO BID #20 tab Instructions: Blood in the Urine (Hematuria) in Adults, Acute Cystitis (DC) Forms: [facility] (Niuean) Print Language: MONGOLIAN
[2018-10-24 15:48] LABS: BASO # 0.1 K/uL (0.0-0.2); BASO % 1.4 % (0.0-2.0); EOS # 0.3 K/uL (0.0-0.7); EOS % 3.8 % (0.0-4.0); HEMOGLOBIN 14.1 g/dL (12.0-18.0); LYMPH # 1.8 K/uL (1.0-4.3); MEAN CORPUSCULAR HEMOGLOBIN 32.5 pg (27.0-31.0); MEAN CORPUSCULAR HGB CONC 33.9 g/dL (33.0-37.0); MEAN PLATELET VOLUME 8.6 fl (7.2-11.7); MONO # 0.8 K/uL (0.0-0.8); MONO % 10.8 % (0.0-10.0); RBC 4.34 Mil/uL (4.40-5.90); RED CELL DISTRIBUTION WIDTH 13.8 % (11.5-14.5)
[2018-10-24 15:55] LABS: BLOOD UREA NITROGEN 15 mg/dl (9-20); CALCIUM 9.1 mg/dL (8.4-10.2); GFR NON-AFRICAN AMERICAN > 60
[2018-10-24 16:47] LABS: URINE BACTERIA RARE (<OCC); URINE BILIRUBIN NEGATIVE (NEGATIVE); URINE BLOOD LARGE (NEGATIVE); URINE CLARITY TURBID (Clear); URINE COLOR RED (YELLOW); URINE GLUCOSE (UA) NEG (NEGATIVE); URINE LEUKOCYTE ESTERASE NEG Leu/uL (Negative); URINE PROTEIN 100 mg/dL (NEGATIVE); URINE UROBILINOGEN 0.2-1.0 mg/dL (0.2-1.0)
[2018-10-24] MEDS ORDERED: Tmp-Smz 800 mg-160 mg DS Tab PO ONE (17:28)
[2018-10-24] MEDS ORDERED: Tmp-Smz 800 mg-160 mg DS Tab ONE (18:32)
[2018-10-24 18:47] LABS: HEMOGLOBIN 14.4 g/dL (12.0-18.0); MEAN CELL VOLUME 95.7 fl (80.0-94.0); MEAN CORPUSCULAR HEMOGLOBIN 31.9 pg (27.0-31.0); MEAN CORPUSCULAR HGB CONC 33.3 g/dL (33.0-37.0); RBC 4.52 Mil/uL (4.40-5.90); RED CELL DISTRIBUTION WIDTH 13.8 % (11.5-14.5); WHITE BLOOD COUNT 8.2 K/uL (4.8-10.8)
[2018-10-24 19:05] VITALS: BP 146/78; PULSE 67; RESP 18; TEMP 97.8
== END 2018-10-24 19:05 | disposition home or self-care (01) ==
LOC: H.ER 13:40
DX: N30.91 Cystitis, unspecified with hematuria (principal); Z87.891 Personal history of nicotine dependence; I10 Essential (primary) hypertension; J43.9 Emphysema, unspecified; J45.909 Unspecified asthma, uncomplicated; N40.0 Benign prostatic hyperplasia without lower urinary tract symptoms; Z88.8 Allergy status to other drugs, medicaments and biological substances; Z95.5 Presence of coronary angioplasty implant and graft; I25.10 Atherosclerotic heart disease of native coronary artery without angina pectoris

== ENCOUNTER 2018-10-28 18:07 | Emergency (ER) | payer OTHER ==
[2018-10-28 18:08] VITALS: BMI 32.2
[2018-10-28 18:15] VITALS: O2SAT 100
[2018-10-28 19:12] LABS: SQUAMOUS EPITHIAL < 1 /hpf (0-5); URINE BACTERIA RARE (<OCC); URINE BILIRUBIN NEGATIVE (NEGATIVE); URINE BLOOD LARGE (NEGATIVE); URINE CLARITY SLIGHTY-CLOUDY (Clear); URINE COLOR AMBER (YELLOW); URINE GLUCOSE (UA) NEG (NEGATIVE); URINE PROTEIN 100 mg/dL (NEGATIVE); URINE UROBILINOGEN 0.2-1.0 mg/dL (0.2-1.0)
[2018-10-28 19:13] LABS: URINE LEUKOCYTE ESTERASE SMALL Leu/uL (Negative)
[2018-10-28 19:26] LABS: BASO # 0.1 K/uL (0.0-0.2); BASO % 0.9 % (0.0-2.0); EOS # 0.2 K/uL (0.0-0.7); EOS % 1.7 % (0.0-4.0); HEMOGLOBIN 13.7 g/dL (12.0-18.0); LYMPH % 22.2 % (20.0-40.0); MEAN CELL VOLUME 95.8 fl (80.0-94.0); MEAN CORPUSCULAR HEMOGLOBIN 32.5 pg (27.0-31.0); MEAN CORPUSCULAR HGB CONC 33.9 g/dL (33.0-37.0); MEAN PLATELET VOLUME 8.9 fl (7.2-11.7); MONO # 0.8 K/uL (0.0-0.8); MONO % 9.4 % (0.0-10.0); NEUT # 5.8 K/uL (1.8-7.0); NEUT % 65.8 % (50.0-75.0); RBC 4.23 Mil/uL (4.40-5.90); RED CELL DISTRIBUTION WIDTH 14.2 % (11.5-14.5); WHITE BLOOD COUNT 8.9 K/uL (4.8-10.8)
[2018-10-28 19:35] LABS: ALB/GLOB RATIO 1.3 (1.0-2.1); ALBUMIN 4.1 g/dL (3.5-5.0); ALT/SGPT 56 U/L (21-72); AST/SGOT 47 U/L (17-59); BLOOD UREA NITROGEN 18 mg/dl (9-20); CALCIUM 9.1 mg/dL (8.4-10.2); GFR NON-AFRICAN AMERICAN > 60
--- NOTE | 2018-10-28 19:35 | ED PDOC ---
HPI: Male Pain Time Seen by Provider: 10/28/18 18:18 Chief Complaint (Nursing): Male Genitourinary Chief Complaint (Provider): Male Genitourinary History Per: Patient History/Exam Limitations: no limitations Onset/Duration Of Symptoms: Days (x4) Additional Complaint(s): 63 y/o presents to the ED complaining of hematuria for the past x4 days. Patient was seen here and his lab work at that time was unremarkable except for blood in his urine; patient was advised to follow up with urologist. Patient also had pain in his left lower quadrant at that time. Blood in urine resolved spontaneously and he reports he saw his own doctor who referred him to Dr. Goddard, urologist, and he has an appointment on the the . Patient again developed hematuria with "a lot" of blood with clots. Denies dysuria, frequency. His left lower quadrant pain is persisting and getting worse. Patient denies any difficulty with flow. He denies fever, vomiting, as well as dental, nasal, or rectal bleeding. Patient is on Plavix. Past Medical History Vital Signs: Last Vital Signs Temp 98.0 F 10/28/18 18:14 Pulse 67 10/28/18 18:14 Resp BP 137/78 10/28/18 18:14 Pulse Ox 100 10/28/18 18:14 - Medical History PMH: Asthma, Benign Prostatic Hyperplasia, CAD, Colonic Polyps, COPD, Emphysema, Gastritis, HTN Denies: Chronic Kidney Disease - Surgical History Surgical History: Back Surgery (cervical fusion - 2 years ago), Coronary Stent ( x1) - Family History Family History: States: Unknown Family Hx - Social History Ex-Smoker (has not smoked in the last 12 months): Yes - Home Medications Home Medications: Ambulatory Orders Medication Instructions Recorded Clopidogrel [Plavix] 75 mg PO DAILY 04/27/16 Albuterol HFA [Ventolin HFA 90 200 puff IH PRN PRN 08/13/16 mcg/actuation (8 g)] Acetaminophen 2 tab PO Q4 PRN #24 capsule 11/28/16 oxyCODONE/Acetaminophen [Percocet 1 ea PO Q6 PRN #5 tab 11/28/16 5/325 mg Tab] Nitrofurantoin Macrocrystals 100 mg PO BID #14 cap 12/09/16 [Macrobid] oxyCODONE/Acetaminophen [Percocet 1 ea PO Q6 PRN #4 tab 07/06/17 5/325 mg Tab] oxyCODONE/Acetaminophen [Percocet 1 ea PO Q6H PRN #10 tab 06/19/18 5/325 mg Tab] Azithromycin [Zithromax] 250 mg PO DAILY #6 tab 08/23/18 Benzonatate [Tessalon Perle] 100 mg PO Q8 PRN #10 capsule 08/23/18 Meclizine [Meclizine*] 25 mg PO Q8 #15 tab 09/06/18 Sulfamethoxazole/Trimethoprim 1 tab PO BID #20 tab 10/24/18 [Bactrim DS 800 mg-160 mg] - Allergies Allergies/Adverse Reactions: Allergies Allergy/AdvReac Type Severity Reaction Status Date / Time Iodinated Contrast- Oral and Allergy RASH Verified 10/24/18 13:46 IV Dye Review of Systems ROS Statement: Except As Marked, All Systems Reviewed And Found Negative (as per HPI otherwise negative) Constitutional: Negative for: Fever ENT: Negative for: Nose Discharge Genitourinary Male: Positive for: Hematuria Physical Exam - Reviewed Nursing Documentation Reviewed: Yes Vital Signs Reviewed: Yes - Physical Exam Appears: Positive for: No Acute Distress Skin: Positive for: Normal Color. Negative for: Pallor Eye Exam: Positive for: EOMI, PERRL ENT: Negative for: Pharyngeal Erythema, Tonsillar Exudate Neck: Positive for: Painless ROM, Supple Cardiovascular/Chest: Positive for: Regular Rate, Rhythm. Negative for: Murmur Respiratory: Positive for: Normal Breath Sounds. Negative for: Respiratory Distress Gastrointestinal/Abdominal: Positive for: Soft, Tenderness (LLQ tenderness to palpation; mild suprapubic tenderness to palpation). Negative for: Mass, Distended, Guarding, Rebound Back: Negative for: L CVA Tenderness, R CVA Tenderness Extremity: Positive for: Normal ROM. Negative for: Deformity Lymphatic: Negative for: Adenopathy Neurologic/Psych: Positive for: Alert. Negative for: Motor/Sensory Deficits - Laboratory Results Result Diagrams: 10/28/18 19:00 10/28/18 19:00 Lab Results: Urine Color Bria (YELLOW) 10/28/18 18:56 Urine Clarity Slighty-cloudy (Clear) 10/28/18 18:56 Urine pH 6.0 (5.0-8.0) 10/28/18 18:56 Ur Specific [place] 1.012 (1.003-1.030) 10/28/18 18:56 Urine Protein 100 mg/dL (NEGATIVE) 10/28/18 18:56 Urine Glucose (UA) Neg mg/dL (NEGATIVE) 10/28/18 18:56 Urine Ketones Negative mg/dL (NEGATIVE) 10/28/18 18:56 Urine Blood Large (NEGATIVE) 10/28/18 18:56 Urine Nitrate Negative (NEGATIVE) 10/28/18 18:56 Urine Bilirubin Negative (NEGATIVE) 10/28/18 18:56 Urine Urobilinogen 0.2-1.0 mg/dL (0.2-1.0) 10/28/18 18:56 Ur Leukocyte Esterase Small Aman/uL (Negative) 10/28/18 18:56 Urine RBC (Auto) 552 /hpf (0-3) H 10/28/18 18:56 Urine Microscopic WBC 8 /hpf (0-5) H 10/28/18 18:56 Ur Squamous Epith Cells < 1 /hpf (0-5) 10/28/18 18:56 Urine Bacteria Rare (<OCC) 10/28/18 18:56 - ECG O2 Sat by Pulse Oximetry: 100 (RA) Pulse Ox Interpretation: Normal Medical Decision Making Medical Decision Making: Time: 18:32 Initial Impression: Hematuria Differential included but not limited to renal stone, coagulopathy, anemia, prostate malignancy, bladder malignancy Initial Plan: Type and screen CT Abd Pelvis CMP CBC w/ diff PTT Prothrombin time Acetaminophen 975 mg Urine culture UA Labs with no clinically significant abnormalities Name: HETAL FARRIS Exam Date: Oct 28, 2018 7:13:50 PM EST Modality Type: CT\\SR Description: CT - ABDOMEN AND PELVIS Gender: M Laterality: Not applicable : 57 Referring Physician: Emergency Room direct number EXAM: CT Abdomen and Pelvis without IV contrast CLINICAL HISTORY: Hematuria, LLQ pain TECHNIQUE: Axial computed tomography images of the abdomen and pelvis without intravenous contrast. 818.37 mGy-cm CONTRAST: Without COMPARISON: None provided. FINDINGS: LUNG BASES: The lung bases appear clear. No pleural effusions are seen. LIVER: There is hepatomegaly. The liver measured approximately 19.8 cm in the midclavicular line. GALLBLADDER AND BILE DUCTS: The gallbladder is suboptimally visualized due to partial contraction. No radioopaque gallstones are seen. No biliary ductal dilatation is evident. PANCREAS: Unremarkable. SPLEEN: Unremarkable. ADRENAL GLANDS: Unremarkable. KIDNEYS, URETERS, AND BLADDER: The kidneys appear within normal limits. There is no hydronephrosis or hydrouret er. No urinary calculi are seen. The urinary bladder is normal in size and configuration. STOMACH AND BOWEL: Unremarkable appearance of the stomach and bowel. No evidence of bowel obstruction. No evidence suggesting enteritis or colitis. APPENDIX: There appears to have been prior appendectomy. PERITONEUM: No free fluid. No free air. There is noted to have been prior bilateral inguinal surgery. A small umbilical hernia is present which contains fat. LYMPH NODES: No lymphadenopathy is evident. REPRODUCTIVE: The seminal vesicles appeared normal and symmetrical in size. There is pr ostatic hypertrophy demonstrated. The prostate gland measured approximately 5.5 cm transversely. VASCULATURE: No evidence of abdominal aortic aneurysm. Extensive atherosclerotic vascular plaquing is present. BONES: No aggressive appearing osseous lesion. No acute osseous pathology evident. IMPRESSION: 1. No acute intra-abdominal or pelvic abnormality. 2. Evidence of previous bilateral inguinal surgery. 3. Status post appendectomy. 4. A small umbilical hernia is noted which contains fat. 5. Mild prostatic hypertrophy. The prostate gland measured 5.5 cm transversely. 6. Extensive atherosclerotic vascular plaquing. Electronically signed on Oct 28, 2018 8:13:40 PM EST by: Ezekiel Núñez M.D., CASEY Certified By [employer] Fellowship Trained MRI and CT Specialist Pt's labs stable c/w previous DW pt at length findings and plan of care. Encouraged to keep appointment with urologist and reassured no acute emergencies at this time. Results given directly to patient. Scribe Attestation: Documented by Jakub Amador acting as a scribe for Pippa Bowles MD. Provider Scribe Attestation: All medical record entries made by the Scribe were at my direction and personally dictated by me. I have reviewed the chart and agree that the record accurately reflects my personal performance of the history, physical exam, medical decision making, and the department course for this patient. I have also personally directed, reviewed, and agree with the discharge instructions and disposition. Disposition - Clinical Impression Clinical Impression: Hematuria Counseled Patient/Family Regarding: Studies Performed, Diagnosis, Need For Followup - Disposition Referrals: Lawson Wade MD [Non-Staff] - (KEEP YOUR APPOINTMENT WITH DR WADE. CALL THE OFFICE TUESDAY AND SEE IF YOU CAN GET A MORE URGENT APPOINTMENT. YOU HAVE TO TELL THEM YOU WERE SEEN IN THE ER ALREADY FOR EVALUATION. PLEASE BRING YOUR RESULTS WITH YOU.) Disposition: Routine/Home Disposition Time: 20:26 Condition: STABLE Instructions: Blood in the Urine (Hematuria), Adult (DC) Print Language: NAMIBIAN
[2018-10-28 19:37] LABS: PROTHROMBIN TIME 11.4 Seconds (9.8-13.1)
[2018-10-28 19:40] LABS: PARTIAL THROMBOPLASTIN TIME 27.7 Seconds (25.6-37.1)
[2018-10-28 20:43] VITALS: BP 142/83; PULSE 59; RESP 18; TEMP 97.6
--- NOTE | 2018-10-29 10:18 | CT ---
Date of service: 10/28/2018 PROCEDURE: CT Abdomen and Pelvis without intravenous contrast HISTORY: hematuria LLQ/Left flank pain COMPARISON: CT scan of the abdomen and pelvis dated 12/09/2016 TECHNIQUE: Contiguous images were obtained from the domes of the diaphragms to the upper thighs without the administration of intravenous contrast. Oral contrast was not administered. Radiation dose: Total exam DLP = 818.37 mGy-cm. This CT exam was performed using one or more of the following dose reduction techniques: Automated exposure control, adjustment of the mA and/or kV according to patient size, and/or use of iterative reconstruction technique. FINDINGS: LOWER THORAX: Bibasilar atelectasis/scarring. Heart size normal. Coronary arterial and valvular calcifications. LIVER: Unremarkable. No gross lesion or ductal dilatation. GALLBLADDER AND BILE DUCTS: Unremarkable. PANCREAS: Unremarkable. No gross lesion or ductal dilatation. SPLEEN: Unremarkable. ADRENALS: Unremarkable. No mass. KIDNEYS AND URETERS: Unremarkable. No hydronephrosis. No solid mass. VASCULATURE: Unremarkable. No aortic aneurysm. Aortic atherosclerotic calcification present. BOWEL: Colonic diverticulosis. No obstruction. No gross mural thickening. APPENDIX: Prior partial appendectomy. Appendiceal stump unremarkable. PERITONEUM: Small fat containing umbilical hernia. Prior bilateral herniorrhaphy. Small bilateral fat containing inguinal hernias, left slightly larger than right. No free fluid. No free air. LYMPH NODES: Unremarkable. No enlarged lymph nodes. BLADDER: Unremarkable. REPRODUCTIVE: Prostatomegaly. BONES: T12 superior endplate Schmorl node redemonstrated. No acute fracture. OTHER FINDINGS: None. IMPRESSION: No obstructive uropathy or evidence of recently passed genitourinary calculus. Stable findings as above.
== END 2018-10-28 20:50 | disposition home or self-care (01) ==
LOC: H.ER 18:07
DX: R31.9 Hematuria, unspecified (principal); I10 Essential (primary) hypertension; I25.10 Atherosclerotic heart disease of native coronary artery without angina pectoris; J43.9 Emphysema, unspecified; K42.9 Umbilical hernia without obstruction or gangrene; N40.0 Benign prostatic hyperplasia without lower urinary tract symptoms; Z88.8 Allergy status to other drugs, medicaments and biological substances; Z95.5 Presence of coronary angioplasty implant and graft

== ENCOUNTER 2019-02-14 09:01 | Emergency (ER) | payer OTHER ==
[2019-02-14 09:07] VITALS: BP 131/74; PULSE 66; RESP 14; TEMP 98
[2019-02-14 09:08] VITALS: BMI 31.0
--- NOTE | 2019-02-14 09:36 | ED PDOC ---
HPI: General Adult Time Seen by Provider: 02/14/19 09:12 Chief Complaint (Nursing): Abnormal Skin Integrity Chief Complaint (Provider): Abnormal Skin Integrity History Per: Patient History/Exam Limitations: no limitations Onset/Duration Of Symptoms: Days (3) Additional Complaint(s): 62 y/o male presents to the ED complaining of itches rash to his face since 3 days ago. Patient states there was no improvement with hydrocortisone ointment. Patient denies of any other rashes. PMD: none provided Past Medical History Reviewed: Historical Data, Nursing Documentation, Vital Signs Vital Signs: Last Vital Signs Temp 98.0 F 02/14/19 09:06 Pulse 66 02/14/19 09:06 Resp 14 02/14/19 09:06 BP 131/74 02/14/19 09:06 Pulse Ox 98 02/14/19 09:10 Primary Care Provider: FAMILY PROVIDER,NO - Medical History PMH: Asthma, Benign Prostatic Hyperplasia, CAD, Colonic Polyps, COPD, Emphysema, Gastritis, HTN Denies: Chronic Kidney Disease - Surgical History Surgical History: Back Surgery (cervical fusion - 2 years ago), Coronary Stent (x1) - Family History Family History: States: Unknown Family Hx - Home Medications Home Medications: Ambulatory Orders Medication Instructions Recorded Clopidogrel [Plavix] 75 mg PO DAILY 04/27/16 Albuterol HFA [Ventolin HFA 90 200 puff IH PRN PRN 08/13/16 mcg/actuation (8 g)] Acetaminophen 2 tab PO Q4 PRN #24 capsule 11/28/16 oxyCODONE/Acetaminophen [Percocet 1 ea PO Q6 PRN #5 tab 11/28/16 5/325 mg Tab] Nitrofurantoin Macrocrystals 100 mg PO BID #14 cap 12/09/16 [Macrobid] oxyCODONE/Acetaminophen [Percocet 1 ea PO Q6 PRN #4 tab 07/06/17 5/325 mg Tab] oxyCODONE/Acetaminophen [Percocet 1 ea PO Q6H PRN #10 tab 06/19/18 5/325 mg Tab] Azithromycin [Zithromax] 250 mg PO DAILY #6 tab 08/23/18 Benzonatate [Tessalon Perle] 100 mg PO Q8 PRN #10 capsule 08/23/18 Meclizine [Meclizine*] 25 mg PO Q8 #15 tab 09/06/18 Sulfamethoxazole/Trimethoprim 1 tab PO BID #20 tab 10/24/18 [Bactrim DS 800 mg-160 mg] Cetirizine HCl [Zyrtec] 10 mg PO DAILY #10 capsule 02/14/19 Prednisone 50 mg PO DAILY #5 tab 02/14/19 - Allergies Allergies/Adverse Reactions: Allergies Allergy/AdvReac Type Severity Reaction Status Date / Time Iodinated Contrast- Oral and Allergy RASH Verified 02/14/19 09:10 IV Dye Review of Systems ROS Statement: Except As Marked, All Systems Reviewed And Found Negative ENT: Negative for: Throat Swelling, Other (No tightness of throat.) Respiratory: Negative for: Shortness of Breath Skin: Positive for: Rash Physical Exam - Reviewed Nursing Documentation Reviewed: Yes Vital Signs Reviewed: Yes - Physical Exam Skin: Positive for: Rash (Minimal erythema to cheeks bilaterally. Flat; no papules or macules.) Respiratory: Positive for: Normal Breath Sounds. Negative for: Wheezing - ECG O2 Sat by Pulse Oximetry: 98 Medical Decision Making Medical Decision Making: Time:934 Impression: Allergic dermatitis Scribe Attestation: Documented by Madiha Singh, acting as a scribe for Adilson Rodriguez. Provider Scribe Attestation: All medical record entries made by the Scribe were at my direction and personally dictated by me. I have reviewed the chart and agree that the record accurately reflects my personal performance of the history, physical exam, medical decision making, and the department course for this patient. I have also personally directed, reviewed, and agree with the discharge instructions and disposition. Disposition - Clinical Impression Clinical Impression: Allergic dermatitis - Disposition Referrals: [facility] [Outside] Disposition Time: 09:31 Condition: FAIR Prescriptions: Cetirizine HCl [Zyrtec] 10 mg PO DAILY #10 capsule Prednisone 50 mg PO DAILY #5 tab Instructions: Contact Dermatitis (DC) Forms: [facility] (Tongan)
[2019-02-14 10:32] VITALS: O2SAT 100
== END 2019-02-14 09:45 | disposition home or self-care (01) ==
LOC: H.ER 09:01
DX: L23.9 Allergic contact dermatitis, unspecified cause (principal)